=== PATIENT | female | born 1960 | race Asian ===

== ENCOUNTER 2018-05-08 14:27 | Outpatient (CLI) | payer OTHER ==
--- NOTE | 2018-05-08 15:46 | BD ---
DEXA BONE DENSITY: HISTORY: Atherosclerosis. COMPARISON: None. FINDINGS: Lumbar Spine: BMD (g/cm2) L1 0.778 T-Score: -1.9 -0.8 L2 0.895 T-Score: -1.2 0.1 L3 0.862 T-Score: -2.0 -0.6 L4 0.811 T-Score: -2.3 -0.96 L1-L4 0.83 T-Score: -1.9 -0.6 Femoral Neck: 0.768 T-Score: -0.7 0.5 Total Femur: 0.941 T-Score: 0.0 0.9 Impression: LUMBAR SPINE: WHO calcification osteopenia. Fracture risk has not increased. FEMORAL NECK: WHO calcification is normal. Ten-year fracture for a major osteoporotic fracture is 3.2% and hip fracture 0.1%. POS: [facility]
--- NOTE | 2018-05-27 15:35 | MMO ---
Bilateral MAMMO Bilat Screen [facility]. CLINICAL HISTORY: Patient is 57 years old and is seen for screening. The patient has no family history of breast cancer. The patient has no personal history of cancer. VIEWS: The views performed were: bilateral craniocaudal with tomosynthesis and bilateral mediolateral oblique with tomosynthesis. FILMS COMPARED: The present examination has been compared to prior imaging studies performed at [facility] on 12/18/2012 and 03/12/2016. MAMMOGRAM FINDINGS: There are scattered fibroglandular densities. There are vascular calcifications seen in both breasts. There are no suspicious masses, calcifications or areas of architectural distortion. IMPRESSION: CALCIFICATIONS IN BOTH BREASTS ARE BENIGN. A ROUTINE FOLLOW-UP MAMMOGRAM IN 1 YEAR IS RECOMMENDED. THE RESULTS OF THIS EXAM WERE SENT TO THE PATIENT. ACR BI-RADS Category 2 - Benign finding MAMMOGRAPHY NOTE: 1. A negative mammogram report should not delay a biopsy if a dominant of clinically suspicious mass is present. 2. Approximately 10% to 15% of breast cancers are not detected by mammography. 3. Adenosis and dense breasts may obscure an underlying neoplasm.
== END 2018-05-08 14:28 | disposition home or self-care (01) ==
LOC: BICMAMMO 14:27
PROVIDERS: ATTEND Family Medicine
DX: Z12.31 Encounter for screening mammogram for malignant neoplasm of breast (principal); Z13.820 Encounter for screening for osteoporosis; R92.1 Mammographic calcification found on diagnostic imaging of breast; M85.88 Other specified disorders of bone density and structure, other site
CPT/HCPCS: 77063; 77067; 77080